=== PATIENT | female | born 1960 | race African-American/Black ===

== ENCOUNTER 2017-02-01 17:41 | Emergency (ER) | payer OTHER, MEDICAID ==
[~2017-02-01] VITALS: Ht 170.2 cm; Wt 151.6 kg
[2017-02-01 18:16] VITALS: BP 148/79
--- NOTE | 2017-02-01 18:24 | NUR ---
PATIENT AMBULATED TO ER OF3.
[2017-02-01] MEDS ORDERED: HYDROCORTISONE 2.5% CRM 30 GM TUBE TP ONE (19:40)
--- NOTE | 2017-02-01 20:14 | NUR ---
2ND CALL TO HOUSE SUP FOR PT TOP MEDS.
[2017-02-01 20:17] LABS: BASOPHILS # (AUTO) 0.4 K/uL (0.00-0.22); EOSINOPHILS # (AUTO) 0.3 K/uL (0-0.4); HEMOGLOBIN 13.7 g/dL (12.0-16.0); LYMPHOCYTES # (AUTO) 2.7 K/uL (2.5-16.5); MEAN CORPUSCULAR HEMOGLOBIN 30 pg (27-31); MEAN CORPUSCULAR HGB CONC 32 g/dL (33-37); MEAN CORPUSCULAR VOLUME 94 fL (80-94); MONOCYTES # (AUTO) 0.3 K/uL (0.8-1.0); NEUTROPHILS # (AUTO) 2.8 K/uL (1.8-7.7); PLATELET COUNT (AUTO) 261 K/uL (140-450); RED BLOOD CELL COUNT(AUTO) 4.59 MIL/uL (4.20-5.40); RED CELL DISTRIBUTION WIDTH 13.4 % (11.6-13.7); WHITE BLOOD COUNT (AUTO) 6.5 K/uL (4.8-10.8)
[2017-02-01 20:22] LABS: ANION GAP 10.8 (8-16); POTASSIUM 3.8 mmol/L (3.5-5.1)
--- NOTE | 2017-02-01 20:22 | NUR ---
ICE PACK GIVEN TO PT FOR RASH
[2017-02-01 20:28] LABS: ALBUMIN 3.9 g/dL (3.4-5.0); TOTAL BILIRUBIN 0.4 mg/dL (0.0-1.0)
[2017-02-01] MEDS ORDERED: SILVER SULFADIAZINE 1% 50 GM JAR TP ONE ×2 (20:38→20:45)
--- NOTE | 2017-02-01 20:39 | NUR ---
Patient noted to have existing wounds upon arrival to ER. Wound covered with dressing. Physician informed.
[2017-02-01] MEDS ORDERED: predniSONE 20 MG TAB PO ONE (20:40)
--- NOTE | 2017-02-01 20:50 | NUR ---
Patient discharged with v/s stable. Written and verbal after care instructions given and explained. Patient alert, oriented and verbalized understanding of instructions. Ambulatory with steady gait. All questions addressed prior to discharge. ID band removed. Patient advised to follow up with PMD. Rx of HYDROCORTISONE 2.5% TID, BENADRYL 25MG Q8HRS/PRN, PREDNISONE 50MG DAILY given. Patient educated on indication of medication including possible reaction and side effects. Opportunity to ask questions provided and answered.
[2017-02-01 20:55] VITALS: BP 140/72
== END 2017-02-01 20:50 | disposition home or self-care (01) ==
LOC: MED 17:41
DX: L25.9 Unspecified contact dermatitis, unspecified cause (principal); J45.909 Unspecified asthma, uncomplicated; E11.9 Type 2 diabetes mellitus without complications; I10 Essential (primary) hypertension
CPT/HCPCS: 36415; 80053; 85025; 99284